=== PATIENT | female | born 1935 | race Caucasian/White ===

== ENCOUNTER → 2020-03-21 | Outpatient (CLI) | payer MEDICARE, OTHER ==
[~2020-03-21] MED LIST: ACET325T14 PO; ALPR0.5T7 PO; ATOR10TA PO; CALC500T93 PO; CHOL10003 PO; EZET10TA70 PO; GABA-826 PO; LEVO125T5 PO; LISI-170 PO; MULT-449 PO; OMEP20TA62 PO; TAMS-11 PO; TRAZ-96 PO
[2020-03-21 12:19] LABS: CHLORIDE 103 mmol/L (98-107)
[2020-03-21 12:26] LABS: ALANINE AMINOTRANSFERASE 18 U/L (12-78); ALBUMIN 3.8 g/dL (3.4-5.0); ALKALINE PHOSPHATASE 64 U/L (45-117); ANION GAP 3 mmol/L (5-15); BILIRUBIN,TOTAL 0.4 mg/dL (0.2-1.0); CALCIUM 9.3 mg/dL (8.5-10.1); CREATININE 0.93 mg/dL (0.55-1.02); TOTAL PROTEIN 7.8 g/dL (6.4-8.2)
== END | disposition home or self-care (01) ==
LOC: STAR 10:35
PROVIDERS: ATTEND Otolaryngology
DX: Z01.818 Encounter for other preprocedural examination (principal); R22.0 Localized swelling, mass and lump, head; Z20.828 Contact with and (suspected) exposure to other viral communicable diseases
CPT/HCPCS: 80053; 87635; 93005

== ENCOUNTER 2020-03-26 07:28 | Day surgery (SDC) | payer MEDICARE, OTHER ==
[~2020-03-26] VITALS: Ht 160 cm; Wt 100.6 kg
[2020-03-26] MEDS ORDERED: FENTANYL PF 100 MCG/2ML IV PRN (08:00)
[2020-03-26] MEDS ORDERED: EPHEDRINE 50 MG/ML, 1ML IVPush PRN (08:00)
[2020-03-26] MEDS ORDERED: HYDROmorphone 1 MG/ML, 1ML INJ IVPush PRN (08:00)
[2020-03-26] MEDS ORDERED: hydrALAzine 20 MG/ML, 1ML IV PRN (08:00)
[2020-03-26] MEDS ORDERED: LABETALOL 5MG/ML, 20ML IV PRN (08:00)
[2020-03-26] MEDS ORDERED: ONDANSETRON 2MG/ML, 2ML IVPush PRN (08:00)
[2020-03-26] MEDS ORDERED: OXYcodone 5 MG/5 ML ORAL.SOL UDC PO PRN (08:00)
[2020-03-26] MEDS ORDERED: PROMETHAZINE 25 MG/ML, 1ML IVPush PRN (08:00)
[2020-03-26] MEDS ORDERED: ACETAMINOPHEN 500 MG TABLET PO STA (08:12)
[2020-03-26] MEDS ORDERED: LACTATED RINGERS 1,000 ML IV SCH (08:14)
[2020-03-26] MEDS ORDERED: CHLORHEXIDINE 15 ML UDC MM STA (08:14)
[2020-03-26 08:15] VITALS: BP 168/84
[2020-03-26] MEDS ORDERED: LIDOCAINE/PF 1%, 30ML ONE (08:17)
[2020-03-26] MEDS ORDERED: OXYMETAZOLINE NASAL SPRAY 0.05%,30ML ONE (08:18)
[2020-03-26] MEDS ORDERED: EPINEPHRINE 1 MG/ML, 1ML ONE (08:18)
[2020-03-26] MEDS ORDERED: FENTANYL PF 100 MCG/2ML ONE (09:01)
[2020-03-26] MEDS ORDERED: SUCCINYLCHOLINE 20 MG/ML, 10ML ONE (09:03)
[2020-03-26] MEDS ORDERED: ONDANSETRON 2MG/ML, 2ML ONE (09:03)
[2020-03-26] MEDS ORDERED: DEXAMETHASONE 4 MG/ML, 1ML ONE (09:03)
[2020-03-26] MEDS ORDERED: PROPOFOL 10 MG/ML, 20ML ONE (09:03)
[2020-03-26] MEDS ORDERED: KETOROLAC 30 MG/1 ML ONE (09:36)
[2020-03-26] MEDS ORDERED: LIDOCAINE-MPF 2% ,5ML ONE (09:37)
[2020-03-26] MEDS ORDERED: MUPIROCIN OINT 2%, 22GM ONE (09:48)
== END 2020-03-26 11:45 | disposition home or self-care (01) ==
LOC: OUT 07:28
PROVIDERS: ATTEND Otolaryngology
DX: J34.89 Other specified disorders of nose and nasal sinuses (principal); D14.0 Benign neoplasm of middle ear, nasal cavity and accessory sinuses; I10 Essential (primary) hypertension; E78.5 Hyperlipidemia, unspecified; E03.9 Hypothyroidism, unspecified; K21.9 Gastro-esophageal reflux disease without esophagitis; Z79.890 Hormone replacement therapy; Z79.899 Other long term (current) drug therapy; Z88.5 Allergy status to narcotic agent
CPT/HCPCS: 31237; 88305; 88331; J0171; J0330; J1100; J1885; J2405; J2704; J3010; J7120